=== PATIENT | male | born 1975 | race Caucasian/White ===

== ENCOUNTER 2016-09-13 20:48 | Inpatient (IN) | payer BC ==
[2016-09-13 20:59] VITALS: BMI 38.4
[2016-09-13] MEDS ORDERED: IBUPROFEN 400 MG TABLET (FP) PO ONE ×3 (21:12→21:29)
[2016-09-13] MEDS ORDERED: diphenhydrAMINE HCL 25 MG CAPSULE (FP) PO ONE ×2 (21:12→21:29)
--- NOTE | 2016-09-13 22:08 | PDOC ---
History of Present Illness - General Chief Complaint: Bone Injury Stated Complaint: INJURY LEFT FOOT Time Seen by Provider: 09/13/16 20:59 History Source: Patient Exam Limitations: No Limitations - History of Present Illness Initial Comments: 09/13/16 22:02 The patient is a 41M with no PMH who presents after sustaining a fall. The patient states that he was stung by a bee outside of his apartment. He stepped inside, felt lightheaded and lost consciousness. He is unsure if he hit his head. He believes that he tripped over his own feet. He was unable to put pressure on that foot. He could not find a ride to the hospital and called EMS. Allergies: none Surg: none Soc: does not smoke, drink, use any drugs Past History - Past Medical History Allergies/Adverse Reactions: Allergies Allergy/AdvReac Type Severity Reaction Status Date / Time No Known Allergies Allergy Verified 09/13/16 20:57 Home Medications: Ambulatory Orders NK [No Known Home Medication] 09/13/16 - Psycho/Social/Smoking Cessation Hx Suicidal Ideation: No Smoking History: Never smoked *Physical Exam - Vital Signs Last Vital Signs Temp Pulse Resp BP Pulse Ox 97.9 F 103 H 22 125/71 98 09/13/16 20:57 09/13/16 20:57 09/13/16 20:57 09/13/16 20:57 09/13/16 20:57 Procedures - Splinting Splint Location: Left: Ankle Pre-Proc Neuro Vasc Exam: normal Hand-Made Type: orthoglass Splint Type: Yes: Short Leg Post-Proc Neuro Vasc Exam: normal Stevo Bandage: 4", 6" Sling: No Post splint xray: Yes (Distal tip is in place, proximal broken fibula out of place) Good repositioning: No ED Treatment Course - LABORATORY CBC & Chemistry Diagram: 09/14/16 01:45 09/14/16 01:45 - RADIOLOGY Radiology Studies Ordered: Category Date Time Status ANKLE & FOOT-LEFT* [RAD] Stat Radiology 09/13/16 21:12 Taken - Medications Given in the ED: ED Medications Discontinued Medications Generic Name Dose Route Start Last Admin Trade Name Freq PRN Reason Stop Dose Admin Diphenhydramine HCl 25 mg 09/13/16 21:12 09/13/16 21:34 Benadryl - PO 09/13/16 21:13 25 mg ONCE ONE Administration Ibuprofen 400 mg 09/13/16 21:12 09/13/16 21:34 Motrin - PO 09/13/16 21:13 400 mg ONCE ONE Administration Ibuprofen 400 mg 09/13/16 21:28 09/13/16 21:34 Motrin - PO 09/13/16 21:29 400 mg ONCE ONE Administration Medical Decision Making - Medical Decision Making 09/14/16 02:00 The patient is a 41M with no PMH who presented after sustaining a fall and breaking his L ankle. We reduced it and splinted in the ED. Post reduction xr does not show a fixed open reduction. I will admit him to [facility] service and consult Dr. Irene. 09/14/16 03:14 Attending believes there is a tibial plateau fracture. I have ordered a CT to r/ o. He has been admitted to Dr. Lopez's service. *DC/Admit/Observation/Transfer Diagnosis at time of Disposition: Fracture - Discharge Dispostion Condition at time of disposition: Stable Admit: Yes - Attestations Physician Attestion: 09/14/16 02:04 I, Dr. Pedro Manuel, attest that this document has been prepared under my direction and personally reviewed by me in its entirety. I further attest, that it accurately reflects all work, treatment, procedures and medical decision -making performed by me.
[2016-09-13] MEDS ORDERED: morphine CARPU-JECT 4 MG/1 ML DISP.SYRIN IVPUSH ONE ×2 (22:40→23:42)
[2016-09-13] MEDS ORDERED: morphine CARPU-JECT 4 MG/1 ML DISP.SYRIN ONE ×2 (22:42→23:41)
[2016-09-13] MEDS ORDERED: ONDANSETRON 4 MG/2 ML VIAL ONE (23:41)
[2016-09-13] MEDS ORDERED: ONDANSETRON 4 MG/2 ML VIAL IVPUSH ONE (23:42)
--- NOTE | 2016-09-13 23:47 | PDOC ---
Attending Attestation - Resident Resident Name: Pedro Manuel - HPI HPI: 09/13/16 23:34 41yo M denies PMH p/w L ankle injury after falling at 4pm today. He reports he was stung by a bee 30 mins prior and when he walked into his building lobby, he tripped and fell, injuring his ankle. +head strike. He denies any LOC, and remembers the entire event. He currently complains of L ankle pain and reports he can not bear weight on the ankle. Not on any anticoagulation. - Physicial Exam PE: 09/13/16 23:39 GENERAL: Awake, alert, and fully oriented, in no acute distress HEAD: No signs of trauma EYES: PERRLA, EOMI, sclera anicteric, conjunctiva clear ENT: Auricles normal inspection, hearing grossly normal, nares patent, oropharynx clear without exudates. Moist mucosa NECK: Normal ROM, supple, no lymphadenopathy, JVD, or masses LUNGS: Breath sounds equal, clear to auscultation bilaterally. No wheezes, and no crackles HEART: Regular rate and rhythm, normal S1 and S2, no murmurs, rubs or gallops ABDOMEN: Soft, nontender, normoactive bowel sounds. No guarding, no rebound. No masses EXTREMITIES: Normal range of motion, no edema. No clubbing or cyanosis. No cords, erythema, or tenderness. L medial malleolus edema with 8x7cm hematoma, + ttp to medial malleolus and distal fibula. 2+ DP pulse b/l. No open wounds. No ttp to proximal fibula. NEUROLOGICAL: Cranial nerves II through XII grossly intact. 5/5 motor strength in upper and lower extremities, normal sensation in all 4 extremities Normal speech, gait deferred 2/2 ankle injury SKIN: Warm, Dry, normal turgor, no rashes or lesions noted. - Medical Decision Making 09/17/16 08:21 41yo M p/w unstable closed ankle fracture. Neurovascularly intact with 2+ SP and TP pulses. Attempted reduction and placed stirrup followed by posterior splint, on re-imaging, fracture still very displaced. Pt admitted to medicine for likely surgical management with ortho.
[2016-09-14] MEDS ORDERED: morphine CARPU-JECT 4 MG/1 ML DISP.SYRIN ONE (00:56)
[2016-09-14] MEDS ORDERED: morphine CARPU-JECT 4 MG/1 ML DISP.SYRIN IVPUSH ONE (01:02)
[2016-09-14 01:51] LABS: BASOPHIL 0.2 % (0-2.0); EOSINOPHIL 0.1 % (0-4.5); MCH 30.1 pg (25.7-33.7); MEAN CELL VOLUME 91.3 fl (80-96); MEAN PLT VOLUME 9.4 fl (7.5-11.1); NEUTROPHILS 83.1 % (42.8-82.8); PLATELET COUNT 270 K/MM3 (134-434); RDW 13.1 % (11.9-15.9); WHITE BLOOD COUNT 17.3 K/mm3 (4.0-10.0)
[2016-09-14 02:05] LABS: INR 1.1 (0.82-1.09); PROTHROMBIN TIME (PATIENT) 12.1 SEC (9.98-11.88)
[2016-09-14 02:07] LABS: ACTIVATED PTT 32.5 SECONDS (26.9-34.4)
[2016-09-14 02:15] LABS: ANION GAP 12 (8-16); BILIRUBIN,TOTAL 0.9 mg/dL (0.2-1.0); CALCIUM 8.7 mg/dL (8.5-10.1); CO2 26 mmol/L (21-32); CREATININE 0.7 mg/dL (0.7-1.3); GLUCOSE,RANDOM 75 mg/dL (74-106); SGPT/ALT 30 U/L (12-78); TOT PROT 7.4 g/dl (6.4-8.2)
[2016-09-14 02:16] LABS: ALK PHOS 75 U/L (45-117)
[2016-09-14 02:18] LABS: SGOT/AST 25 U/L (15-37)
[2016-09-14] MEDS ORDERED: oxyCODONE HCL 5 MG TABLET PO PRN (06:25)
[2016-09-14] MEDS ORDERED: ACETAMINOPHEN 325 MG TABLET (FP) PO PRN (06:25)
[2016-09-14] MEDS ORDERED: LIDOCAINE HCL 1%, 10 MG/ML (20ML VIAL) ONE (11:10)
[2016-09-14] MEDS ORDERED: LIDOCAINE HCL 1%, 10 MG/ML (50 mL VIAL) SQ ONE (11:15)
[2016-09-14] MEDS ORDERED: HYDROmorphone HCL CARPU-JECT 1 MG/1 ML DISP.SYRIN IVPB ONE (11:15)
[2016-09-14 11:28] LABS: BASOPHIL 0.2 % (0-2.0); EOSINOPHIL 0.4 % (0-4.5); MCH 29.6 pg (25.7-33.7); MCHC 32.4 g/dl (32.0-35.9); MEAN CELL VOLUME 91.3 fl (80-96); MEAN PLT VOLUME 8.3 fl (7.5-11.1); NEUTROPHILS 72.6 % (42.8-82.8); PLATELET COUNT 223 K/MM3 (134-434)
[2016-09-14 11:55] LABS: ALBUMIN 3.8 g/dl (3.4-5.0); ANION GAP 4 (8-16); CALCIUM 8.8 mg/dL (8.5-10.1); CO2 30 mmol/L (21-32); CREATININE 0.8 mg/dL (0.7-1.3); GLUCOSE,RANDOM 86 mg/dL (74-106); SGOT/AST 16 U/L (15-37); SGPT/ALT 27 U/L (12-78); TOT PROT 7.1 g/dl (6.4-8.2)
[2016-09-14 11:56] LABS: ALK PHOS 70 U/L (45-117)
--- NOTE | 2016-09-14 12:16 | CON.ORTH ---
Consult - Alcohol/Substance Use Hx Alcohol Use: Yes (occassionally) - Smoking History Smoking history: Never smoked Home Medications - Allergies Allergies/Adverse Reactions: Allergies Allergy/AdvReac Type Severity Reaction Status Date / Time No Known Allergies Allergy Verified 09/13/16 20:57 - Home Medications Home Medications: Ambulatory Orders NK [No Known Home Medication] 09/13/16 Physical Exam for Ortho Vital Signs: Vital Signs Temperature 97.7 F 09/14/16 09:00 Pulse Rate 89 09/14/16 09:00 Respiratory Rate 18 09/14/16 09:00 Blood Pressure 116/74 09/14/16 09:00 O2 Sat by Pulse Oximetry (%) 95 09/14/16 09:00 Labs: CBC, BMP 09/14/16 10:50 09/14/16 10:50 INR, PTT INR 1.10 (0.82-1.09) 09/14/16 01:45 Problem List - Problems (1) Fracture of distal end of left fibula Code(s): S82.832A - OTH FRACTURE OF UPPER AND LOWER END OF LEFT FIBULA, INIT Qualifiers: Encounter type: initial encounter Fracture type: closed Fracture morphology: unspecified fracture morphology Qualified Code(s): S82.832A - Other fracture of upper and lower end of left fibula, initial encounter for closed fracture Assessment/Plan Full consult dictated. Closed reduction performed at bedside. Fracture blisters present, will need to resolve prior to operative fixation. Strict NWB. PT for crutches. Elevate limb. PT for crutch training. Started NSAID to relieve inflammation. Can be discharged when comfortable on crutches.
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
[2016-09-14] MEDS: DICLOFENAC SODIUM 75 MG TABLET.DR PO SCH ×2 (16:21→17:36)
[2016-09-14] MEDS ORDERED: PT OWN MED DRAWER 7, Y5N ONE (17:32)
[2016-09-14] MEDS: ACETAMINOPHEN 325 MG TABLET (FP) PO PRN (18:03)
[2016-09-14] MEDS: oxyCODONE HCL 5 MG TABLET PO PRN (18:05)
[2016-09-14 18:23] LABS: URINE APPEARANCE CLEAR; URINE BILIRUBIN NEGATIVE (NEGATIVE); URINE BLOOD NEGATIVE (NEGATIVE); URINE COLOR YELLOW; URINE GLUCOSE (UA) NEGATIVE (NEGATIVE); URINE KETONE NEGATIVE (NEGATIVE); URINE LEUK ESTERASE NEGATIVE (NEGATIVE); URINE NITRITE NEGATIVE (NEGATIVE); URINE PROTEIN NEGATIVE (NEGATIVE); URINE UROBILINOGEN NEGATIVE mg/dL (0.2-1.0)
--- NOTE | 2016-09-15 00:05 | CONS ---
DATE OF CONSULTATION: 09/14/2016 REASON FOR CONSULTATION: Left ankle fracture. HISTORY OF PRESENT ILLNESS: This is a 41-year-old gentleman who had suffered a fall when he after being stung by a bee. He was unable to ambulate and brought in by EMS to the emergency department. He was evaluated for ankle pain, does not have an ankle fracture. Initially reduction was attempted by the emergency room staff; however, the ankle remained unreduced. Orthopedic consultation was called. At the time of examination, the patient is complaining of moderate discomfort to the left lower extremity. He denies any numbness or tingling. He denies any pain elsewhere. He notes he was painful before but has been really painful now. No previous ankle injuries. PAST MEDICAL HISTORY: Denies. PAST SURGICAL HISTORY: Denies. MEDICATION: None. ALLERGIES: None. SOCIAL HISTORY: Denies alcohol, tobacco, or drug use. REVIEW OF SYSTEMS: Negative for fever, chills, nausea, vomiting, night sweats, chest pain, shortness of breath, diarrhea, flatulence, rashes. PHYSICAL EXAMINATION: General: This is a well-appearing male in no acute distress. He is alert and oriented x3. Seen lying in hospital bed. He is overweight. He has regular respirations and normal affect. Extremities: Examination of the left ankle demonstrates a splint in place. The splint is removed. There is a 3 x 4 cm fracture blister noted on the medial aspect of the ankle located 5 cm from the distal tip of the medial malleolus. There are no lateral lesions. There is moderate diffuse swelling. The compartments are soft. There is very limited range of motion actively secondary to pain. Sensation is intact to light touch. CR less than 2 seconds. Radiographs from the emergency room are reviewed. There is a displaced spiral distal fibular fracture, Nelson C, with clear widening of the medial clear space and no interval change after attempted reduction. ASSESSMENT: Left unstable ankle injury. PLAN: I reviewed today's findings with the patient. We discussed that this is considered an unstable type ankle fracture. We reviewed that generally, this is best treated with operative fixation. This ruled out for anatomic reduction of the ankle and helps to prevent post traumatic arthrosis. We assessed the alternative of closed treatment, however, even a small amount of mild reduction could lead to a significantly increased contact pressures on the joints and breakdown of the cartilage. We reviewed that I am recommending a closed reduction at this time in order to obtain a better reduction. While this is not guaranteed, a more anatomic reduction may help the swelling to resolve in better time. I reviewed the risks of closed reduction which will be done with local anesthetic which may include infection or failure to reduce the ankle. I addressed all the patient's questions. We reviewed that surgery would be performed at a later date, typically 2-3 weeks after the injury to allow for resolution of the fracture blister as well as some of the swelling, to minimize the risk of perioperative infection and wound breakdown. Patient voiced understanding and agreement with the plan. A closed reduction was performed as documented below. PROCEDURE: Left ankle was prepped with chlorhexidine under sterile technique, an 18-gauge needle was inserted into the medial clear space, and 10 mL of 1% lidocaine was injected. A band-aid was placed. Patient was also given IV Dilaudid to help relieve any discomfort. The foot was allowed to sit for 10 minutes to allow for the medication to start working. The foot was then . A Xeroform dressing was placed about the blistered area. Manual reduction was effected and a clunk was felt as the ankle reduced; however, it was felt to be quite unstable and small motions were felt to create crackling sensations from the ankle joint. The ankle was now well padded with a layer of Webril padding. An AO type splint was now applied, maintaining a varus mold to help maintain the ankle in a more reduced position. Post reduction radiographs are ordered. JOVANA MEYERS M.D. [id number]
[2016-09-15] MEDS: oxyCODONE HCL 5 MG TABLET PO PRN ×5 (00:45→23:02)
[2016-09-15] MEDS: ACETAMINOPHEN 325 MG TABLET (FP) PO PRN ×5 (00:46→23:02)
[2016-09-15] MEDS ORDERED: PT OWN MED DRAWER 7, Y5N ONE ×2 (07:39→16:36)
[2016-09-15] MEDS: DICLOFENAC SODIUM 75 MG TABLET.DR PO SCH ×2 (07:45→17:55)
--- NOTE | 2016-09-15 09:02 | PN ---
Progress Note, Physician - Current Medication List Current Medications: Active Medications Acetaminophen (Tylenol -) 650 mg PO Q4H PRN PRN Reason: pain scale of 1-5 Last Admin: 09/15/16 07:45 Dose: 650 mg Acetaminophen (Tylenol -) 325 mg PO Q4H PRN PRN Reason: for pain scale of 6-10 Stop: 09/17/16 09:24 Last Admin: 09/15/16 00:46 Dose: 325 mg Diclofenac Sodium (Voltaren -) 75 mg PO BIDWM SAFIA Last Admin: 09/15/16 07:45 Dose: 75 mg Oxycodone HCl (Roxicodone -) 5 mg PO Q4H PRN PRN Reason: for pain scale of 6-10 Last Admin: 09/15/16 07:44 Dose: 5 mg - Objective Vital Signs: Vital Signs Temperature 97.9 F 09/15/16 05:58 Pulse Rate 80 09/15/16 05:58 Respiratory Rate 20 09/15/16 05:58 Blood Pressure 154/74 09/15/16 05:58 O2 Sat by Pulse Oximetry (%) 97 09/14/16 20:59 Labs: CBC, BMP 09/14/16 10:50 09/14/16 10:50 INR, PTT INR 1.10 (0.82-1.09) 09/14/16 01:45 Problem List - Problems (1) Fracture of distal end of left fibula Assessment/Plan: Fracture, distal end of L fibula -S/P closed reduction -L lower leg casted, NWB -Patient teaching on how to use crutches -NSAID for pain and inflammation -PT eval for the use of crutches Code(s): S82.832A - OTH FRACTURE OF UPPER AND LOWER END OF LEFT FIBULA, INIT Qualifiers: Encounter type: initial encounter Fracture type: closed Fracture morphology: unspecified fracture morphology Qualified Code(s): S82.832A - Other fracture of upper and lower end of left fibula, initial encounter for closed fracture (2) Syncope and collapse Assessment/Plan: ekg cardio Code(s): R55 - SYNCOPE AND COLLAPSE
--- NOTE | 2016-09-15 13:33 | EKG ---
Test Reason : Blood Pressure : / mmHG Vent. Rate : 082 BPM Atrial Rate : 082 BPM P-R Int : 138 ms QRS Dur : 090 ms QT Int : 354 ms P-R-T Axes : 040 062 034 degrees QTc Int : 413 ms NORMAL SINUS RHYTHM NORMAL ECG WHEN COMPARED WITH ECG OF 13-SEP-2016 22:47, NO SIGNIFICANT CHANGE WAS FOUND Confirmed by RENY VILLA MD ([id number]) on 09/15/2016 1:33:06 PM Referred By: BATSHEVA VILLASENOR Confirmed By:RENY VILLA MD
--- NOTE | 2016-09-15 13:42 | EKG ---
Test Reason : Blood Pressure : / mmHG Vent. Rate : 090 BPM Atrial Rate : 090 BPM P-R Int : 124 ms QRS Dur : 086 ms QT Int : 366 ms P-R-T Axes : 041 046 045 degrees QTc Int : 447 ms NORMAL SINUS RHYTHM NORMAL ECG NO PREVIOUS ECGS AVAILABLE Confirmed by RENY VILLA MD ([id number]) on 09/15/2016 1:42:17 PM Referred By: Confirmed By:RENY VILLA MD
--- NOTE | 2016-09-15 14:24 | CON.CARD ---
Consult Consult Specialty:: Cardiology Reason for Consultation:: Syncope - History of Present Illness Chief Complaint: Syncope after a bee sting History of Present Illness: This is a 41 year old male with no PMH who got stung by a bee in his buccal mucosa. He walked back to his apartment then felt lightheaded and believes he lost consciousness. He states he "fell" and sustained a left ankle injury which was splinted in the ED. He also sustained bruising over his left eye. He denies a significant medical history and there is no significant family history. 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, CVA, Dementia, Migraine, Multiple Sclerosis, Peripheral Neuropathy, Parkinson's, Seizure, Syncope, TIA, Vertigo, Other Cardio/Vascular: No: AFIB, Aneurysm, Aortic Insufficiency, Aortic Stenosis, CAD , CHF, Deep Vein Thrombosis, HTN, Hyperlipdemia, [place], Mitral Insufficiency, Mitral Stenosis, Murmur, Pulmonary Hypertension, Other Pulmonary: No: Asthma, Bronchitis, Cancer, COPD, O2 Dependent, Pneumonia, Previously Intubated, Pulmonary Embolus, Pulmonary Fibrosis, Sleep Apnea, Other Gastrointestinal: No: Ascites, Cancer, Constipation, Crohn's Disease, Diverticulitis, Diverticulosis, Esophageal Varices, Gastritis, GERD, GI Bleed, Hemorrhoids, Hiatal Hernia, Inflamatory Bowel Disease, Irritable Bowel Disease, Pancreatitis, Peptic Ulcer Disease, Ulcerative Colitis, Other Hepatobiliary: No: Cirrhosis, Cholelithiasis, Cholecystitis, Choledocholithiasis , Hepatitis A, Hepatitis B, Hepatitis C, Other Renal/: No: Renal Failure, Renal Inusuff, BPH, Cancer, Hematuria, Hemodialysis , Neurogenic Bladder, Renal Calculi, UTI, Other Infectious Disease: No: AIDS, C-Diff, Herpes Zoster, HIV, MRSA, STD's, Tuberculosis, VREF, Other Psych: No: Addictions, Anxiety, Bipolar, Depression, Panic, Psychosis, Schizophrenia, Other Musculoskeletal: Yes: Other (Pain, left ankle) Rheumatology: No: Fibromyalgia, Gout, Lupus, Rheumatoid Arthritis, Sarcoidosis, Vasculitis, Other ENT: No: Allergic Rhinitis, Sinusitis, Other Endocrine: No: Stokes's Disease, [place]'s Disease, Diabetes Insipidus, Diabetes Mellitus, Hyperparathyroidism, Hyperthyroidism, Hypothyroidism, Osteopenia, SIADH, Other Dermatology: No: Basal Cell, Cellulitis, Eczema, Melanoma, Psoriasis, Squamous Cell, Other - Alcohol/Substance Use Hx Alcohol Use: Yes (occassionally) History of Substance Use: reports: None - Smoking History Smoking history: Never smoked - Social History ADL: Independent 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 [employer] History of Recent Travel: No Home Medications - Allergies Allergies/Adverse Reactions: Allergies Allergy/AdvReac Type Severity Reaction Status Date / Time No Known Allergies Allergy Verified 09/13/16 20:57 - Home Medications Home Medications: Ambulatory Orders NK [No Known Home Medication] 09/13/16 Family Disease History - Family Disease History Family Disease History: Heart Disease: Father (Atherosclerosis), Other: Mother ( Obesity) Review of Systems Unable to obtain ROS, reason: As per HPI Vital Signs: Vital Signs Temperature 98.6 F 09/15/16 09:00 Pulse Rate 89 09/15/16 09:00 Respiratory Rate 16 09/15/16 09:00 Blood Pressure 120/60 09/15/16 09:00 O2 Sat by Pulse Oximetry (%) 96 09/15/16 09:00 Constitutional: Yes: Well Nourished Neck: Yes: WNL Respiratory: Yes: CTA Bilaterally Gastrointestinal: Yes: Soft Cardiovascular: Yes: Regular Rate and Rhythm Heart Sounds: Yes: S1, S2 (NO MRHG) Extremities: Yes: Other (Left leg cast intact Right leg no edema) Neurological: Yes: WNL (Non focal) Psychiatric: Yes: WNL - Other Data Labs, Other Data: CBC, BMP 09/14/16 10:50 09/14/16 10:50 INR, PTT INR 1.10 (0.82-1.09) 09/14/16 01:45 Assessment/Plan Syncope Most likely situational secondary to the bee sting inducing a vagal reaction However, would like to rule out structural heart disease (although unlikely given the normal appearing EKG) Please obtain an echocardiogram
[2016-09-16 07:41] LABS: BASOPHIL 0.1 % (0-2.0); EOSINOPHIL 1.3 % (0-4.5); MCH 30.2 pg (25.7-33.7); MCHC 32.9 g/dl (32.0-35.9); MEAN CELL VOLUME 91.6 fl (80-96); MEAN PLT VOLUME 8.7 fl (7.5-11.1); NEUTROPHILS 77.8 % (42.8-82.8); PLATELET COUNT 207 K/MM3 (134-434); RDW 13.4 % (11.9-15.9); WHITE BLOOD COUNT 11.1 K/mm3 (4.0-10.0)
[2016-09-16] MEDS ORDERED: PT OWN MED DRAWER 7, Y5N ONE ×2 (08:27→17:01)
[2016-09-16 08:30] LABS: ALBUMIN 3.5 g/dl (3.4-5.0); ALK PHOS 65 U/L (45-117); ANION GAP 7 (8-16); CALCIUM 8.6 mg/dL (8.5-10.1); CO2 28 mmol/L (21-32); CREATININE 0.7 mg/dL (0.7-1.3); GLUCOSE,RANDOM 77 mg/dL (74-106); SGOT/AST 17 U/L (15-37); SGPT/ALT 24 U/L (12-78); TOT PROT 7.2 g/dl (6.4-8.2)
[2016-09-16] MEDS: DICLOFENAC SODIUM 75 MG TABLET.DR PO SCH ×2 (08:30→17:07)
--- NOTE | 2016-09-16 12:04 | PN ---
Progress Note, Physician Chief Complaint: fall, left ankle fracture History of Present Illness: 41 year old male with no significant PMHx came in to the ED after sustaining a L ankle injury after falling at 4pm today. He reports he was stung by a bee in the right inner lip 30 mins prior and when he walked into his building lobby, he started to see yellow and black squares and fainted for a minute but remembers the entire event. Patient sustained a bruise and pain in the left ankle pain. NAD, sitting in a wheel chair, no pain at this time. - Current Medication List Current Medications: Active Medications Acetaminophen (Tylenol -) 650 mg PO Q4H PRN PRN Reason: pain scale of 1-5 Last Admin: 09/15/16 17:56 Dose: 650 mg Acetaminophen (Tylenol -) 325 mg PO Q4H PRN PRN Reason: for pain scale of 6-10 Stop: 09/17/16 09:24 Last Admin: 09/15/16 23:02 Dose: 325 mg Diclofenac Sodium (Voltaren -) 75 mg PO BIDWM SAFIA Last Admin: 09/16/16 08:30 Dose: 75 mg Oxycodone HCl (Roxicodone -) 5 mg PO Q4H PRN PRN Reason: for pain scale of 6-10 Last Admin: 09/15/16 23:02 Dose: 5 mg - Objective Vital Signs: Vital Signs Temperature 98.6 F 09/16/16 10:00 Pulse Rate 97 H 09/16/16 10:00 Respiratory Rate 17 09/16/16 10:00 Blood Pressure 128/70 09/16/16 10:00 O2 Sat by Pulse Oximetry (%) 98 09/16/16 10:02 Constitutional: Yes: Well Nourished, No Distress, Calm Cardiovascular: Yes: Regular Rate and Rhythm Respiratory: Yes: Regular Extremities: Yes: Other (LLE cast) Edema: No Peripheral Pulses WNL: Yes Neurological: Yes: Alert, Oriented Psychiatric: Yes: Alert, Oriented Labs: CBC, BMP 09/16/16 05:35 09/16/16 05:35 INR, PTT INR 1.10 (0.82-1.09) 09/14/16 01:45 Problem List - Problems (1) Fracture of distal end of left fibula Code(s): S82.832A - OTH FRACTURE OF UPPER AND LOWER END OF LEFT FIBULA, INIT Qualifiers: Encounter type: initial encounter Fracture type: closed Fracture morphology: unspecified fracture morphology Qualified Code(s): S82.832A - Other fracture of upper and lower end of left fibula, initial encounter for closed fracture (2) Syncope and collapse Code(s): R55 - SYNCOPE AND COLLAPSE Assessment/Plan Fracture, distal end of L fibula -S/P closed reduction -L lower leg casted, NWB -Patient was unable to use crutches, used walker, which has to be cleared by orthopedic -NSAID for pain and inflammation -was seen by cardiology who recommended echo -echo ordered -d/c if echo okay and walker approved by orthopedic
--- NOTE | 2016-09-16 15:59 | PN ---
Progress Note, Physician Chief Complaint: Presently resting comfortably and offers no complaints History of Present Illness: This is a 41 year old male with no PMH who got stung by a bee in his buccal mucosa. He walked back to his apartment then felt lightheaded and believes he lost consciousness. He states he "fell" and sustained a left ankle injury which was splinted in the ED. He also sustained bruising over his left eye. He denies a significant medical history and there is no significant family history. 09/16/16 No cardiac complaints. Echocardiogram performed, results pending. - Current Medication List Current Medications: Active Medications Acetaminophen (Tylenol -) 650 mg PO Q4H PRN PRN Reason: pain scale of 1-5 Last Admin: 09/15/16 17:56 Dose: 650 mg Acetaminophen (Tylenol -) 325 mg PO Q4H PRN PRN Reason: for pain scale of 6-10 Stop: 09/17/16 09:24 Last Admin: 09/15/16 23:02 Dose: 325 mg Diclofenac Sodium (Voltaren -) 75 mg PO BIDWM SAFIA Last Admin: 09/16/16 08:30 Dose: 75 mg Oxycodone HCl (Roxicodone -) 5 mg PO Q4H PRN PRN Reason: for pain scale of 6-10 Last Admin: 09/15/16 23:02 Dose: 5 mg - Objective Vital Signs: Vital Signs Temperature 98.0 F 09/16/16 14:47 Pulse Rate 95 H 09/16/16 14:47 Respiratory Rate 16 09/16/16 14:47 Blood Pressure 157/79 09/16/16 14:47 O2 Sat by Pulse Oximetry (%) 98 09/16/16 10:02 Constitutional: Yes: Well Nourished HENT: Yes: WNL Neck: Yes: WNL Cardiovascular: Yes: Regular Rate and Rhythm, S1, S2 (No MRHG) Respiratory: Yes: CTA Bilaterally Gastrointestinal: Yes: Soft Musculoskeletal: Yes: WNL Edema: No Peripheral Pulses WNL: Yes Neurological: Yes: Alert, Oriented (Non focal) Psychiatric: Yes: WNL Labs: CBC, BMP 09/16/16 05:35 09/16/16 05:35 INR, PTT INR 1.10 (0.82-1.09) 09/14/16 01:45 Assessment/Plan Syncope Most likely situational secondary to the bee sting inducing a vagal reaction However, would like to rule out structural heart disease (although unlikely given the normal appearing EKG) 09/16/16 No cardiac complaints. Echocardiogram performed, results pending. BP presently elevated to 157/79 mmHg, however, it was 119/69 mmHg on admission. No need for antihypertensive medication at this time.
[2016-09-16] MEDS: oxyCODONE HCL 5 MG TABLET PO PRN ×2 (17:07→22:54)
[2016-09-16] MEDS: ACETAMINOPHEN 325 MG TABLET (FP) PO PRN ×2 (17:07→22:53)
--- NOTE | 2016-09-17 08:11 | PN ---
Progress Note (short form) - Note Progress Note: Pt comf AF VSS LLE splint in place sens int to LT wiggling toes cr<2 post reduction films show no improvement in alignment A/p: L unstable ankle fracture -continue splint at this time -to see me Thursday in office for wound check -consider ex-fix if blister worsening or more blisters -plan ORIF 1-2 weeks -elevate -strict NWB -PT for ambulation Problem List - Problems (1) Fracture of distal end of left fibula Code(s): S82.832A - OTH FRACTURE OF UPPER AND LOWER END OF LEFT FIBULA, INIT Qualifiers: Encounter type: initial encounter Fracture type: closed Fracture morphology: unspecified fracture morphology Qualified Code(s): S82.832A - Other fracture of upper and lower end of left fibula, initial encounter for closed fracture
[2016-09-17] MEDS ORDERED: PT OWN MED DRAWER 7, Y5N ONE (09:12)
--- NOTE | 2016-09-17 09:12 | PN ---
Progress Note, Physician - Current Medication List Current Medications: Active Medications Acetaminophen (Tylenol -) 650 mg PO Q4H PRN PRN Reason: pain scale of 1-5 Last Admin: 09/15/16 17:56 Dose: 650 mg Acetaminophen (Tylenol -) 325 mg PO Q4H PRN PRN Reason: for pain scale of 6-10 Stop: 09/17/16 09:24 Last Admin: 09/16/16 22:53 Dose: 325 mg Diclofenac Sodium (Voltaren -) 75 mg PO BIDWM SAFIA Last Admin: 09/16/16 17:07 Dose: 75 mg Oxycodone HCl (Roxicodone -) 5 mg PO Q4H PRN PRN Reason: for pain scale of 6-10 Last Admin: 09/16/16 22:54 Dose: 5 mg - Objective Vital Signs: Vital Signs Temperature 98.2 F 09/17/16 05:57 Pulse Rate 83 09/17/16 05:57 Respiratory Rate 18 09/17/16 05:57 Blood Pressure 118/60 09/17/16 05:57 O2 Sat by Pulse Oximetry (%) 97 09/16/16 21:00 Labs: CBC, BMP 09/16/16 05:35 09/16/16 05:35 INR, PTT INR 1.10 (0.82-1.09) 09/14/16 01:45 Problem List - Problems (1) Fracture of distal end of left fibula Assessment/Plan: Fracture, distal end of L fibula -S/P closed reduction -L lower leg casted, NWB -Patient was unable to use crutches, used walker, which was cleared by orthopedic -NSAID for pain and inflammation -was seen by cardiology who recommended echo -echo ordered -d/c if echo okay Code(s): S82.832A - OTH FRACTURE OF UPPER AND LOWER END OF LEFT FIBULA, INIT Qualifiers: Encounter type: initial encounter Fracture type: closed Fracture morphology: unspecified fracture morphology Qualified Code(s): S82.832A - Other fracture of upper and lower end of left fibula, initial encounter for closed fracture (2) Syncope and collapse Assessment/Plan: ekg cardio echo Code(s): R55 - SYNCOPE AND COLLAPSE
--- NOTE | 2016-09-17 09:22 | DS ---
Physical Examination Vital Signs: Vital Signs Temperature 98.2 F 09/17/16 05:57 Pulse Rate 83 09/17/16 05:57 Respiratory Rate 18 09/17/16 05:57 Blood Pressure 118/60 09/17/16 05:57 O2 Sat by Pulse Oximetry (%) 97 09/16/16 21:00 Labs: CBC, BMP 09/16/16 05:35 09/16/16 05:35 Discharge Summary Reason For Visit: ANKLE FRACTURE Current Active Problems Fracture (Acute) Fracture of distal end of left fibula (Acute) Syncope and collapse (Acute) Hospital Course: - Problems (1) Fracture of distal end of left fibula Assessment/Plan: Fracture, distal end of L fibula -S/P closed reduction -L lower leg casted, NWB -Patient was unable to use crutches, used walker, which was cleared by orthopedic -NSAID for pain and inflammation -was seen by cardiology who recommended echo -echo ordered -d/c if echo okay Code(s): S82.832A - OTH FRACTURE OF UPPER AND LOWER END OF LEFT FIBULA, INIT Qualifiers: Encounter type: initial encounter Fracture type: closed Fracture morphology: unspecified fracture morphology Qualified Code(s): S82.832A - Other fracture of upper and lower end of left fibula, initial encounter for closed fracture (2) Syncope and collapse Assessment/Plan: ekg cardio echo Code(s): R55 - SYNCOPE AND COLLAPSE Condition: Stable - Instructions Referrals: Savita Lopez MD [Primary Care Provider] - 2 Weeks Misbah Irene MD [Staff Physician] - 09/19/16 - Home Medications Comprehensive Discharge Medication List: Ambulatory Orders Acetaminophen [Tylenol .Regular Strength -] 650 mg PO Q4H PRN #0 tablet Diclofenac Sodium [Voltaren -] 75 mg PO BIDWM #30 tab 09/17/16 Oxycodone HCl [Roxicodone -] 5 mg PO Q6H PRN #20 tablet MDD 4 09/17/16 Ranitidine [Zantac -] 150 mg PO DAILY #30 tablet 09/17/16
[2016-09-17] MEDS: DICLOFENAC SODIUM 75 MG TABLET.DR PO SCH ×2 (09:31→17:27)
[2016-09-17] MEDS: oxyCODONE HCL 5 MG TABLET PO PRN ×2 (09:40→17:28)
[2016-09-17] MEDS: ACETAMINOPHEN 325 MG TABLET (FP) PO PRN ×2 (09:42→17:29)
[2016-09-17 14:50] VITALS: BP 132/88; PULSE 90; TEMP 98.5
--- NOTE | 2016-09-17 15:23 | PN ---
Progress Note, Physician Chief Complaint: Presently resting comfortably and offers no complaints History of Present Illness: This is a 41 year old male with no PMH who got stung by a bee in his buccal mucosa. He walked back to his apartment then felt lightheaded and believes he lost consciousness. He states he "fell" and sustained a left ankle injury which was splinted in the ED. He also sustained bruising over his left eye. He denies a significant medical history and there is no significant family history. 09/16/16 No cardiac complaints. Echocardiogram performed, showed Normal LV size and function, normal RV size and function. MVP without MR. EF 66%. - Current Medication List Current Medications: Active Medications Acetaminophen (Tylenol -) 650 mg PO Q4H PRN PRN Reason: pain scale of 1-5 Last Admin: 09/17/16 09:42 Dose: 650 mg Diclofenac Sodium (Voltaren -) 75 mg PO BIDWM SAFIA Last Admin: 09/17/16 09:31 Dose: 75 mg Oxycodone HCl (Roxicodone -) 5 mg PO Q4H PRN PRN Reason: for pain scale of 6-10 Last Admin: 09/17/16 09:40 Dose: 5 mg - Objective Vital Signs: Vital Signs Temperature 98.5 F 09/17/16 14:49 Pulse Rate 90 09/17/16 14:49 Respiratory Rate 18 09/17/16 14:49 Blood Pressure 132/88 09/17/16 14:49 O2 Sat by Pulse Oximetry (%) 97 09/16/16 21:00 Constitutional: Yes: Well Nourished Neck: Yes: WNL Cardiovascular: Yes: Regular Rate and Rhythm, S1, S2 (No MRHG) Respiratory: Yes: CTA Bilaterally Gastrointestinal: Yes: Soft Edema: No (Left leg cast) Neurological: Yes: WNL Psychiatric: Yes: WNL Labs: CBC, BMP 09/16/16 05:35 09/16/16 05:35 INR, PTT INR 1.10 (0.82-1.09) 09/14/16 01:45 Assessment/Plan Syncope Most likely situational secondary to the bee sting inducing a vagal reaction However, would like to rule out structural heart disease (although unlikely given the normal appearing EKG) 09/16/16 Echocardiogram results noted. NL LV fxn. MVP without MR. No further cardiac evaluation required at this time.
== END 2016-09-17 18:25 | disposition home or self-care (01) | DRG 563 ==
LOC: JER 20:48 → JERBED 09-14 02:04 → J7W 09-14 04:08
PROVIDERS: ADMIT Family Medicine; ATTEND Family Medicine
PROC: 0QSKXZZ Reposition Left Fibula, External Approach (ICD-10-PCS; principal; 2016-09-14)
DX: S82.832A Other fracture of upper and lower end of left fibula, initial encounter for closed fracture (principal); W18.39XA Other fall on same level, initial encounter; Y93.89 Activity, other specified; Y92.038 Other place in apartment as the place of occurrence of the external cause; Y99.8 Other external cause status; R55 Syncope and collapse
CPT/HCPCS: 36415; 73560-TC-LT; 73590-TC-LT; 73610-TC-LT; 73630-TC-LT; 73700-TC-RT; 80053; 81003; 85025; 85610; 85730; 86850; 86900; 86901; 87077; 87086; 93005; 93010; 93306-TC; 97116-GP; 97161-GP; 99285-25

== ENCOUNTER 2016-09-19 14:15 | Day surgery (SDC) | payer BC ==
[2016-09-19 15:53] VITALS: BMI 38.0
[2016-09-19] MEDS ORDERED: MIDAZOLAM HCL 2 MG/2 ML SINGLE DOSE VIAL ONE (16:09)
[2016-09-19] MEDS ORDERED: DEXAMETHASONE SOD PHOSPHATE/PF 10 MG/ML SDV ONE (16:11)
[2016-09-19] MEDS ORDERED: ROPIVACAINE HCL 0.5% 30ML VIAL ONE (16:11)
[2016-09-19] MEDS ORDERED: PROPOFOL 20 ML ONE ×4 (18:30→19:06)
[2016-09-19] MEDS ORDERED: SUCCINYLCHOLINE CHLORIDE 200 MG/10 ML VIAL ONE (18:31)
[2016-09-19] MEDS ORDERED: ACETAMINOPHEN 1000 MG/100 ML VIAL (NON FORMULARY) IVPB ONE (18:41)
[2016-09-19] MEDS ORDERED: oxyCODONE HCL 5 MG TABLET PO PRN ×3 (18:41→20:39)
[2016-09-19] MEDS ORDERED: DESFLURANE GAS 240 ML BOTTLE IH ONE (19:20)
--- NOTE | 2016-09-19 20:36 | OP ---
Operative Note - Note: Operative Date: 09/19/16 Pre-Operative Diagnosis: left distal fibular fracture, ankle subluxation, fracture blister Operation: external fixation of left ankle Implants: delvis 3 exfix Post-Operative Diagnosis: Same as Pre-op Surgeon: Misbah Irene Anesthesiologist/TALENT ACQUISITION PROJECT MANAGER: Martinez Vaughn Anesthesia: General
[2016-09-19] MEDS ORDERED: ACETAMINOPHEN 325 MG TABLET (FP) PO PRN ×2 (20:38→20:39)
[2016-09-20] MEDS: ACETAMINOPHEN 325 MG TABLET (FP) PO SCH ×4 (01:17→15:57)
[2016-09-20] MEDS: CEFAZOLIN 1 GM/D5W 50 ML IVPB SCH ×3 (01:20→17:50)
[2016-09-20] MEDS: ENOXAPARIN NA (PORCINE) 40 MG/0.4 ML DISP.SYRIN SQ SCH (09:45)
[2016-09-20] MEDS: oxyCODONE HCL 5 MG TABLET PO PRN ×2 (15:58→21:10)
[2016-09-21] MEDS: ACETAMINOPHEN 325 MG TABLET (FP) PO SCH ×3 (00:15→12:47)
[2016-09-21] MEDS: oxyCODONE HCL 5 MG TABLET PO PRN (06:20)
[2016-09-21 06:24] VITALS: TEMP 98
[2016-09-21] MEDS: ENOXAPARIN NA (PORCINE) 40 MG/0.4 ML DISP.SYRIN SQ SCH (10:09)
--- NOTE | 2016-09-21 11:08 | DS ---
Physical Examination Vital Signs: Vital Signs Temperature 98 F 09/21/16 06:22 Pulse Rate 78 09/21/16 06:22 Respiratory Rate 20 09/21/16 06:22 Blood Pressure 121/61 09/21/16 06:22 O2 Sat by Pulse Oximetry (%) 98 09/20/16 22:05 Constitutional: Yes: Well Nourished, No Distress, Calm Extremities: Yes: Other (LLE exfix in place. dressings cdi. NVID) Discharge Summary Reason For Visit: LEFT ANKLE FRACTURE Condition: Good - Instructions Diet, Activity, Other Instructions: no weight on left leg cover with plastic bag for showering take a baby aspirin twice daily follow up on Thursday Referrals: Misbah Irene MD [Staff Physician] - Disposition: HOME - Home Medications Comprehensive Discharge Medication List: Ambulatory Orders Diclofenac Sodium [Voltaren -] 75 mg PO BIDWM #30 tab 09/17/16 Oxycodone HCl [Roxicodone -] 5 mg PO Q6H PRN #20 tablet MDD 4 09/17/16 Ranitidine [Zantac -] 150 mg PO DAILY #30 tablet 09/17/16
--- NOTE | 2016-09-21 11:09 | PN ---
Progress Note (short form) - Note Progress Note: Pt comf. AF VSS LLE dressings cdi sens int to LT CR<2 Moving toes DF PF a/p s/p L ankle ex-fix -nwb -elevate for swelling -aspirin for DVT proph -pain control -follow up Thursday
[2016-09-21 14:19] VITALS: BP 114/62; PULSE 88
--- NOTE | 2016-09-22 22:49 | OP ---
DATE OF OPERATION: 09/19/2016 PREOPERATIVE DIAGNOSIS: Left ankle fracture. POSTOPERATIVE DIAGNOSIS: Left ankle fracture. PROCEDURE: Left ankle internal fixation. SURGEON: Misbah Meyers MD HOME DESIGNER: None. ANESTHESIA: General. POSTOPERATIVE CONDITION: Stable. COMPLICATIONS: None. IMPLANTS: Glen Lyn Rommel III external fixator. INDICATIONS: This is a pleasant 41-year-old gentleman who had suffered an ankle fracture last week. He was found to have a fracture blister, which was significantly draining in the office. Given that his wound care be limited in a splint, he was indicated for external fixation. Treatment options including nonoperative care with continued splinting and possible wound breakdown or infection were discussed. We discussed operative risks in detail including bleeding, infection, neurovascular injury, need for further surgery (which in this case would be guaranteed as the external fixator needs to come off and fibular ORIF needs to be performed), postoperative pain and stiffness. We discussed medical risks such as heart attack, stroke, DVT, PE, and . I addressed all of the patient's questions. He voiced understanding and elected to proceed. DESCRIPTION OF PROCEDURE: The patient was brought to the operating room where general anesthesia was administered. He had been given a block in the preoperative holding area. The left lower extremity was then prepped and draped in the usual sterile fashion. A preoperative dose of antibiotics was given, and the usual timeout procedure was performed. At this point, 2 points were identified over the anterior tibia. Incisions were then made over the tibial crest. Blunt spreading was used to carry down tothe tibial cortex. Two Schanz pins were then inserted under fluoroscopic guidance into the tibia. Schanz placement was confirmed fluoroscopically, and this was satisfactory. The Schanz pin was now inserted into the calcaneus. Here, a lateral radiograph was used to identify the inner calcaneal tuberosity. Incision was made over the medial aspect of the calcaneal tuberosity. This was carried down through skin and subcutaneous tissue. Spreading was used down to the level of the calcaneal cortex. The calcaneal pin was now inserted under power across the calcaneus and retrieved out laterally. With all the pins now in place, a delta frame was assembled onto the Schanz pins. The ankle was reduced. The frame was tightened into place. Fluoroscopy was used to confirm fracture reduction, which was now satisfactory. This was performed in 3 planes. The wounds were now sterilely dressed. It should be noted that the medial blister was approximately 4 x 5 cm in diameter located medially just proximal to the medial malleolus. The entire construct was dressed now. The patient was extubated and transferred to the recovery room in stable condition. MISBAH MEYERS M.D. [id number] MTDD
== END 2016-09-21 17:30 | disposition home or self-care (01) ==
LOC: FASU 14:15 → FM/S 20:00 → FASU 09-21 17:30
PROVIDERS: ATTEND Orthopaedic Surgery Sports Medicine
PROC: 2W3RXYZ Immobilization of Left Lower Leg using Other Device (ICD-10-PCS; principal; 2016-09-19 19:05)
DX: S82.62XA Displaced fracture of lateral malleolus of left fibula, initial encounter for closed fracture (principal); X58.XXXA Exposure to other specified factors, initial encounter; Y93.9 Activity, unspecified; Y92.9 Unspecified place or not applicable
CPT/HCPCS: 73610-TC-LT; 76000-TC; 94760; 97116-GP

== ENCOUNTER 2016-10-07 10:34 | Day surgery (SDC) | payer BC ==
[2016-10-06 15:16] VITALS: BMI 36.9
[2016-10-07] MEDS ORDERED: ROPIVACAINE HCL 0.5% 30ML VIAL ONE (11:45)
[2016-10-07] MEDS ORDERED: MIDAZOLAM HCL 2 MG/2 ML SINGLE DOSE VIAL ONE ×2 (11:46)
[2016-10-07] MEDS ORDERED: PROPOFOL 20 ML ONE ×3 (12:31)
[2016-10-07] MEDS ORDERED: ceFAZolin SODIUM 1 GM VIAL IVPB ONE ×2 (12:49)
[2016-10-07] MEDS ORDERED: ceFAZolin SODIUM 1 GM VIAL ONE (14:22)
[2016-10-07] MEDS ORDERED: DEXAMETHASONE SOD PHOSPHATE 4 MG/1 ML VIAL ONE (14:22)
[2016-10-07] MEDS ORDERED: ONDANSETRON 4 MG/2 ML VIAL ONE ×2 (14:22)
[2016-10-07] MEDS ORDERED: KETOROLAC TROMETHAMINE 30 MG/1 ML VIAL ONE (14:22)
[2016-10-07] MEDS ORDERED: ONDANSETRON 4 MG/2 ML VIAL IVPUSH PRN (14:52)
[2016-10-07] MEDS ORDERED: oxyCODONE HCL 5 MG TABLET PO PRN (14:52)
[2016-10-07] MEDS ORDERED: LACTATED RINGERS SOLUTION 1,000 ML IV SCH (15:00)
[2016-10-07 16:20] VITALS: TEMP 97.8
[2016-10-07 16:30] VITALS: PULSE 80
--- NOTE | 2016-10-07 16:40 | OP ---
DATE OF OPERATION: 10/07/2016 PREOPERATIVE DIAGNOSIS: Left distal fibular fracture-dislocation status post external fixation. POSTOPERATIVE DIAGNOSIS: Left distal fibular fracture-dislocation status post external fixation. PROCEDURE: Open reduction and internal fixation of left distal fibula and removal of external fixator. SURGEON: Misbah Irene MD MACHINE BURRER: CHAY Marsh, whose skillful assistance was necessary for the safe and timely performance of this procedure. Mr. Cosby was able to provide limb positioning, assist with retraction, assist with fracture reduction, as well as insertion of orthopedic fixation hardware. Also present was Dr. Zamora, podiatry resident. TOURNIQUET TIME: An hour and a half. POSTOPERATIVE CONDITION: Stable. COMPLICATIONS: None. IMPLANTS: Jeffery distal fibular plate with associated locking and nonlocking screws, as well as 2 Ar[employer]rex TightRopes. INDICATIONS: This is a 41-year-old gentleman who suffered an ankle fracture with near dislocation. Initially, he was treated with closed reduction and external fixation as he had formed a large fracture blister and was malreduced. The plan was to perform a staged ORIF at a later date once the swelling and skin condition had improved. Having followed up in the office with significant improvement, he was indicated for his definitive procedure. Prior to surgery, the risks, benefits, and alternatives to surgery were discussed in detail. We discussed the option of continuing external fixation with malunion of the fibula, potential for ligamentous instability. We discussed operative care with plate and screws to fixate the bone once brought back into proper alignment. I reviewed surgical risks including bleeding, infection, neurovascular injury, need for further surgery, postoperative pain and stiffness, nonunion, and malunion. We discussed the possibility of later removal of hardware. I reviewed medical risks such as heart attack, stroke, DVT , PE, and . I discussed the use of perioperative DVT and perioperative antibiotic prophylaxis. I addressed all the patient's questions. He voiced understanding and elected to proceed. DESCRIPTION OF PROCEDURE: The patient was brought to the operating room where general anesthesia was administered. The left lower extremity was then prepped and draped in the usual sterile fashion. Preoperative antibiotics given and the usual timeout procedure was performed. It should be noted that prior to draping, the external fixator had been disassembled, and the pins removed. The calcaneal pin was removed after a die cutter was used to trim off the protruding portion. At this point, an incision was marked out over the fibula. The limb was then elevated, and tourniquet was inflated to 250 mmHg. The incision was then carried down through the skin to the subcutaneous tissue. Blunt spreading was used to expose the fibular fracture site. The fracture site was now debrided of any loose debris. Any soft callus was removed. The fracture was now reduced utilizing fracture reduction forceps. The fracture was then fixated using two 3.5-mm lag screws inserted into the [id number] direction. The fracture reduction clamps were then removed. A plate was chosen and contoured to fit the lateral aspect of the fibula. The plate was now affixed to the bone utilizing a combination of 3.5 locking and nonlocking screws. Initially, nonlocking screws were placed in order to draw the plate down to the bone. The ankle was now passed through an external rotation stress test, and there was widening of the medial clear space. For this reason, fixation of the syndesmosis was chosen. The 3.7-mm drill bit was now used to create 2 tunnels across the fibula and across the tibia. The TightRope devices were now passed through the tunnels, seating the button firmly on the medial tibial cortex. Each TightRope was then tightened. The ankle was now stressed again, and no significant widening was seen. The wound was copiously irrigated at this point. The deep tissue was approximated using 0 Vicryl. The subcutaneous tissue was approximated using 3-0 Vicryl. The skin was closed using running 3-0 nylon. Sterile dressings were placed. The tourniquet was let down. A well-padded short-leg cast was placed. The patient was now extubated. He was transferred to recovery room in stable condition. Sussy [id number] MTDD
[2016-10-07 18:11] VITALS: BP 114/70
--- NOTE | 2016-10-09 08:44 | PATH ---
Surgical Pathology Report Patient Name: CLAUDIA BARRETT Med. Rec. #: [id number] /Age/Gender: 1975 (Age: 41) / M Account: [id number] Location: [facility] Taken: 10/07/2016 Received: 10/08/2016 Reported: 10/09/2016 Physicians: Misbah Irene M.D. 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 Electronically Signed Carlito Sales M.D. Gross Description Received fresh labeled "removed external fixation," are 4 metallic portions of hardware ranging from 5.0-35 cm in greatest dimension, consistent with portions of a leg brace. No soft tissue is present. No sections are submitted, gross only. DL/10/08/2016 saudi/10/08/2016
== END 2016-10-07 18:11 | disposition home or self-care (01) ==
LOC: JASU-SURG 10:34
PROVIDERS: ATTEND Orthopaedic Surgery Sports Medicine
PROC: 0YPBXYZ Removal of Other Device from Left Lower Extremity, External Approach (ICD-10-PCS; 2016-10-07)
PROC: 0QSK04Z Reposition Left Fibula with Internal Fixation Device, Open Approach (ICD-10-PCS; principal; 2016-10-07 12:00)
DX: S82.62XA Displaced fracture of lateral malleolus of left fibula, initial encounter for closed fracture (principal); X58.XXXA Exposure to other specified factors, initial encounter; Y93.9 Activity, unspecified; Y92.9 Unspecified place or not applicable; Y99.9 Unspecified external cause status
CPT/HCPCS: 76000-TC; 88300-TC; 94760

== ENCOUNTER 2016-11-13 12:09 | Day surgery (SDC) | payer BC ==
[2016-11-12 13:37] VITALS: BMI 38.4
[2016-11-13] MEDS ORDERED: DEXAMETHASONE SOD PHOSPHATE/PF 10 MG/ML SDV ONE (12:58)
[2016-11-13] MEDS ORDERED: BUPIVACAINE HCL/PF (5 MG/ML) 30 ML VIAL IJ ONE (12:58)
[2016-11-13] MEDS ORDERED: MIDAZOLAM HCL 2 MG/2 ML SINGLE DOSE VIAL ONE ×2 (12:58→13:30)
[2016-11-13] MEDS ORDERED: ceFAZolin SODIUM 1 GM VIAL ONE (15:06)
[2016-11-13] MEDS ORDERED: oxyCODONE HCL 5 MG TABLET PO PRN ×2 (17:29)
[2016-11-13] MEDS ORDERED: PROMETHAZINE HCL 25 MG/1 ML VIAL IVPUSH PRN (17:29)
[2016-11-13] MEDS ORDERED: ONDANSETRON 4 MG/2 ML VIAL IVPUSH PRN (17:29)
[2016-11-13] MEDS ORDERED: LACTATED RINGERS SOLUTION 1,000 ML IV SCH (17:30)
--- NOTE | 2016-11-13 17:48 | OP ---
DATE OF OPERATION: 11/13/2016 PREOPERATIVE DIAGNOSIS: Left ankle open reduction and internal fixation failure of fixation. POSTOPERATIVE DIAGNOSIS: Left ankle open reduction and internal fixation failure of fixation. PROCEDURE: Left ankle revision of open reduction and internal fixation. SURGEON: Misbah Irene MD EXPORT FREIGHT CLERK: CHAY Abbott, whose skillful assistance was necessary for the safe and timely performance of this procedure. Ms. Dumont was able to assist in limb positioning, retraction, fracture reduction, as well as the insertion of orthopedic fixation hardware. ANESTHESIA TYPE: General. POSTOPERATIVE CONDITION: Stable. COMPLICATIONS: None. TOURNIQUET TIME: Two hours. INDICATIONS: This is a pleasant gentleman who had suffered a left ankle unstable fracture. He was initially treated with external fixation, followed by a staged open reduction and internal fixation. Despite initial postoperative films appearing copasetic as well as his first followup, at 1 month postoperatively, it appeared that his reduction was lost. The exact source of this was unclear. That being said, it was clear that his mortise was not maintained, with widening of the medial clear space. Treatment options including nonoperative care versus operative care were reviewed. Operative risks were reviewed in detail including bleeding, infection, neurovascular injury, need for further surgery, postoperative pain and stiffness, nonunion, malunion, hardware failure, cutout. We discussed medical risks such as heart attack, stroke, DVT, PE, and . I addressed all the patient's questions. He voiced understanding and elected to proceed. DESCRIPTION OF PROCEDURE: The patient was brought to the operating room after administration of a regional block in the preoperative holding area. The left lower extremity was then prepped and draped in the usual sterile fashion. A preoperative dose of antibiotics was given, and the usual timeout procedure was performed. At this point, the limb was exsanguinated. Tourniquet was inflated to 250 mmHg. The previously used incision was incised using a 15 blade through skin to subcutaneous tissue. Blunt spreading was carried down through the scar tissue left behind. This then exposed the plate. The plate was now removed. There were no obvious loose screws. There were no obvious cracks or deformities in the plate. There was a gap seen in the fracture site, but this had filled in somewhat with callus. Utilizing a freer as well as a curette, the fracture site was debrided of any material inside. The fracture was somewhat more comminuted at this point. Utilizing fracture reduction forceps, the fracture was now brought into near-anatomic alignment. The fracture was now held in place with two 2.0 K-wires. The plate was now chosen to transfix the entire fracture site, resting more distal and more proximal than the previous plate in order to provide good fixation. This was now affixed to bone using a combination of locking and nonlocking screws. The K-wires were then removed. There was still some mild widening of the medial clear space, and therefore, syndesmotic fixation was again decided to be placed. It should be noted that while the plate was removed, a medial incision was made over the buttons, and these had been removed at the same time, utilizing blunt spreading to expose the buttons and then pulling out them along with their associated sutures. Two new 3.7-mm drill holes were now made parallel to the mortise. Two TightRopes were inserted and then cinched down, maintaining the ankle in neutral dorsiflexion during the process. The entire construct was now examined both visually and fluoroscopically. Both fracture reduction and hardware placement were satisfactory. The wounds were copiously irrigated at this time. Deep tissue was closed with 0 Vicryl. The subcutaneous tissue was closed with 2-0 Vicryl. The skin was closed interrupted mattress 3-0 nylon, and 4-0 nylon was used for the mattresses. Sterile dressings were placed. The tourniquet was let down after 2 hours. The patient was placed into a short-leg, well-padded cast. He was transferred to recovery room following extubation in stable condition. Sussy [id number]
--- NOTE | 2016-11-13 17:52 | SURG ---
Surgery Human Resources Psychologist Note Human Resources Psychologist: Darlyn Dumont PA-C Date of Service: 11/13/16 Diagnosis: left ankle fracture Procedure: Revision open reduction internal fixation of left ankle fracture I was present for the entirety of the operative procedure. For further detail, please refer to operative report. Visit type - Case Type Case Type: Scheduled Admission - Emergency Emergency Visit: No - New patient This patient is new to me today: Yes Date on this admission: 11/13/16
[2016-11-13] MEDS ORDERED: MORPHINE 100 MG in SODIUM CHLORIDE 98 ML IVPB SCH (18:00)
[2016-11-13] MEDS ORDERED: morphine CARPU-JECT 2 MG/1 ML DISP.SYRIN IVPB PRN (18:14)
[2016-11-13 21:15] LABS: HIV 1 & 2 AB NEGATIVE; HIV 1 AGp24 NEGATIVE
[2016-11-13] MEDS: ASPIRIN 325 MG ENTERIC COATED TABLET (FP) PO SCH (21:22)
[2016-11-14] MEDS ORDERED: PT OWN MED DRAWER 7, Y5N ONE (09:23)
[2016-11-14] MEDS: ASPIRIN 325 MG ENTERIC COATED TABLET (FP) PO SCH (09:26)
[2016-11-14] MEDS ORDERED: ASCORBIC ACID 500 MG TABLET (FP) PO SCH (10:00)
[2016-11-14] MEDS ORDERED: CHOLECALCIFEROL (VITAMIN D3) 400 UNIT TABLET (FP) PO SCH (10:00)
[2016-11-14] MEDS ORDERED: RANITIDINE HCL 150 MG TABLET (FP) PO SCH (10:00)
[2016-11-14] MEDS ORDERED: VITAMIN B COMP W-C 1 EA TABLET PO SCH (10:00)
[2016-11-14] MEDS ORDERED: ACETAMINOPHEN 325 MG TABLET (FP) ONE (11:22)
--- NOTE | 2016-11-14 13:46 | PN ---
Progress Note (short form) - Note Progress Note: S: pt. sitting in a chair, very comfortable. no complaints O: VAS 4/10 A/P: POD#1 s/p left ankle ORIF 1. continue pain meds as ordered 2. no apparent anesthetic complications
[2016-11-14 14:03] VITALS: BP 129/65; PULSE 87; TEMP 98.7
--- NOTE | 2016-11-18 10:34 | PATH ---
Surgical Pathology Report Patient Name: CLAUDIA BARRETT Med. Rec. #: [id number] /Age/Gender: 1975 (Age: 41) / M Account: [id number] Location: [facility] AMBULATORY Taken: 11/13/2016 Received: 11/13/2016 Reported: 11/18/2016 Physicians: Misbah Irene M.D. Specimen(s) Received EXPLANT HARDWARE LEFT ANKLE Clinical History Left ankle fracture Final Diagnosis EXPLANT HARDWARE, LEFT ANKLE: HARDWARE, DESCRIBED (GROSS EXAMINATION ONLY). Electronically Signed Darlyn Patel M.D. Gross Description Received fresh labeled "left ankle explant hardware," are 13 chappell metallic portions of hardware consisting of 8 screws (ranging from 1.1-1.7 cm in length), 2 chappell metallic washers (averaging 0.6 x 0.1 cm), 1 rosen metallic plate (10.5 x 1.0 x 0.2 cm), and 2 chappell metallic plates with attached string (averaging 1.2 x 0.3 x 0.1 cm). No soft tissue is present. No sections are submitted, gross only. /11/14/2016 saudi11/14/2016
== END 2016-11-14 18:22 | disposition home or self-care (01) ==
LOC: FASU 12:09 → FM/S 19:19 → FASU 11-14 18:22
PROVIDERS: ATTEND Orthopaedic Surgery Sports Medicine
PROC: 0SSG0ZZ Reposition Left Ankle Joint, Open Approach (ICD-10-PCS; 2016-11-13)
PROC: 0QSK04Z Reposition Left Fibula with Internal Fixation Device, Open Approach (ICD-10-PCS; principal; 2016-11-13 14:56)
DX: T84.197A Other mechanical complication of internal fixation device of bone of left lower leg, initial encounter (principal); S93.432A Sprain of tibiofibular ligament of left ankle, initial encounter; Y83.8 Other surgical procedures as the cause of abnormal reaction of the patient, or of later complication, without mention of misadventure at the time of the procedure; Y92.9 Unspecified place or not applicable
CPT/HCPCS: 36415; 73610-TC-LT; 76001-TC; 84460; 86803; 87340; 87389; 88300-TC; 94760; 97116-GP; 97161-GP

== ENCOUNTER 2020-07-26 10:06 | Inpatient (IN) | payer BC, OTHER ==
[2020-07-20 13:06] VITALS: BMI 35.9
[2020-07-26] MEDS ORDERED: PROPOFOL 20 ML ONE ×2 (12:16→12:21)
[2020-07-26] MEDS ORDERED: fentaNYL CITRATE 250 MCG/5 ML VIAL ONE (12:16)
[2020-07-26] MEDS ORDERED: EPHEDRINE SULFATE/0.9% NACL/PF 50 MG/10 ML SYRINGE NR ONE (13:10)
[2020-07-26] MEDS ORDERED: ACETAMINOPHEN INJECTION 100 ML IVPB ONE (13:37)
[2020-07-26] MEDS ORDERED: IBUPROFEN 800 MG/8 ML IJ IVPB ONE (13:37)
[2020-07-26] MEDS ORDERED: VANCOMYCIN 1,000 MG VIAL (RESTRICTED TO ID ONLY) ONE (14:02)
[2020-07-26] MEDS ORDERED: oxyCODONE HCL 5 MG TABLET PO PRN (15:28)
[2020-07-26] MEDS ORDERED: ONDANSETRON 4 MG/2 ML VIAL IVPUSH PRN ×2 (15:28→16:15)
[2020-07-26] MEDS ORDERED: LACTATED RINGERS SOLUTION 1,000 ML IV SCH (15:30)
[2020-07-26] MEDS ORDERED: ONDANSETRON 4 MG/2 ML VIAL ONE (15:53)
[2020-07-26] MEDS ORDERED: ACETAMINOPHEN 325 MG TABLET (FP) PO PRN (16:15)
[2020-07-26] MEDS: LACTATED RINGERS SOLUTION 1,000 ML IV SCH (18:24)
[2020-07-26] MEDS: CEFAZOLIN 1 GM/D5W 1 GM/50 ML BAG IVPB SCH (23:27)
[2020-07-27] MEDS: CEFAZOLIN 1 GM/D5W 1 GM/50 ML BAG IVPB SCH (06:08)
[2020-07-27] MEDS ORDERED: VANCOMYCIN/WATER BAGS 1,250 MG/250 ML BAG IVPB SCH (09:45)
[2020-07-27] MEDS ORDERED: PIPERACILLIN/TAZOBACTAM 3.375 GM VIAL IVPB ONE ×2 (09:55→17:43)
[2020-07-27] MEDS ORDERED: DEXTROSE 5%-WATER - 50 ML IVPB ONE ×2 (09:55→17:44)
[2020-07-27] MEDS: PIPERACILLIN/TAZOB 3.375 GM 3.375 GM in DEXTROSE 5%-WATER - 50 ML IVPB SCH ×2 (11:27→18:13)
[2020-07-27 12:31] LABS: BASO % 0.3 % (0-2.0); EOS % 0.5 % (0-4.5); HEMATOCRIT 39.3 % (35.4-49); HEMOGLOBIN 13.1 GM/dl (11.7-16.9); LYMPH % 16.8 % (8-40); MCH 30.9 pg (25.7-33.7); MCHC 33.3 g/dl (32.0-35.9); MEAN CELL VOLUME 92.8 fl (80-96); MEAN PLT VOLUME 9.2 fl (7.5-11.1); MONO % 5.5 % (3.8-10.2); NEUT % 76.9 % (42.8-82.8); PLATELET COUNT 209 10^3/uL (134-434); RBC 4.24 M/mm3 (4.00-5.60); WHITE BLOOD COUNT 11.8 K/mm3 (4.0-10.8)
[2020-07-27] MEDS: VANCOMYCIN HCL 1,250 MG in DEXTROSE 5%-WATER - 250 ML IVPB SCH ×2 (12:38→21:40)
[2020-07-27 12:49] LABS: ALBUMIN 3.6 g/dl (3.4-5.0); BILIRUBIN,TOTAL 0.5 mg/dl (0.2-1); CALCIUM 8.3 mg/dl (8.5-10); CREATININE 0.6 mg/dl (0.55-1.3); TOT PROT 6.5 g/dl (6.4-8.2)
[2020-07-27] MEDS: ENOXAPARIN NA (PORCINE) 40 MG/0.4 ML DISP.SYRIN SQ SCH (13:02)
[2020-07-27] MEDS: LACTATED RINGERS SOLUTION 1,000 ML IV SCH (16:09)
[2020-07-27] MEDS ORDERED: PT OWN MED DRAWER 7, Y5N ONE (20:24)
[2020-07-28] MEDS ORDERED: DEXTROSE 5%-WATER - 50 ML IVPB ONE ×4 (00:54→23:46)
[2020-07-28] MEDS ORDERED: PIPERACILLIN/TAZOBACTAM 3.375 GM VIAL IVPB ONE ×4 (00:54→23:46)
[2020-07-28] MEDS: PIPERACILLIN/TAZOB 3.375 GM 3.375 GM in DEXTROSE 5%-WATER - 50 ML IVPB SCH ×3 (01:33→18:40)
[2020-07-28] MEDS: ENOXAPARIN NA (PORCINE) 40 MG/0.4 ML DISP.SYRIN SQ SCH (09:37)
[2020-07-28] MEDS: VANCOMYCIN HCL 1,250 MG in DEXTROSE 5%-WATER - 250 ML IVPB SCH ×2 (09:40→21:28)
[2020-07-28] MEDS ORDERED: POLYETHYLENE GLYCOL 3350 119 GM BTL PO PRN (16:11)
[2020-07-28] MEDS ORDERED: MAGNESIUM HYDROX 2400MG/30ML ORAL SUSPENSION 30 ML CUP PO PRN (16:11)
[2020-07-28] MEDS: LACTATED RINGERS SOLUTION 1,000 ML IV SCH (18:44)
[2020-07-28] MEDS: DOCUSATE SODIUM 100 MG CAPSULE (FP) PO SCH (21:22)
[2020-07-29] MEDS: PIPERACILLIN/TAZOB 3.375 GM 3.375 GM in DEXTROSE 5%-WATER - 50 ML IVPB SCH ×3 (01:16→17:51)
[2020-07-29] MEDS: DOCUSATE SODIUM 100 MG CAPSULE (FP) PO SCH ×3 (06:03→21:54)
[2020-07-29 08:11] LABS: BASO % 0.3 % (0-2.0); EOS % 1.4 % (0-4.5); HEMATOCRIT 42.8 % (35.4-49); HEMOGLOBIN 14.3 GM/dl (11.7-16.9); LYMPH % 18.8 % (8-40); MCH 30.9 pg (25.7-33.7); MCHC 33.4 g/dl (32.0-35.9); MEAN CELL VOLUME 92.4 fl (80-96); MEAN PLT VOLUME 9.2 fl (7.5-11.1); MONO % 6.2 % (3.8-10.2); NEUT % 73.3 % (42.8-82.8); PLATELET COUNT 207 10^3/uL (134-434); RBC 4.63 M/mm3 (4.00-5.60); RDW 12.2 % (11.9-15.9); WHITE BLOOD COUNT 7.1 K/mm3 (4.0-10.8)
[2020-07-29 08:21] LABS: CALCIUM 8.9 mg/dl (8.5-10); CREATININE 0.5 mg/dl (0.55-1.3)
[2020-07-29] MEDS ORDERED: PIPERACILLIN/TAZOBACTAM 3.375 GM VIAL IVPB ONE ×2 (09:31→17:38)
[2020-07-29] MEDS ORDERED: DEXTROSE 5%-WATER - 50 ML IVPB ONE ×2 (09:32→17:38)
[2020-07-29] MEDS: ENOXAPARIN NA (PORCINE) 40 MG/0.4 ML DISP.SYRIN SQ SCH (09:51)
[2020-07-29] MEDS: VANCOMYCIN HCL 1,250 MG in DEXTROSE 5%-WATER - 250 ML IVPB SCH ×2 (09:52→21:42)
[2020-07-29 10:12] LABS: ERYTHROCYTE SEDIMENTATION RATE 16 mm/hr (0-10)
[2020-07-29] MEDS ORDERED: PT OWN MED DRAWER 7, Y5N ONE (21:08)
[2020-07-29] MEDS: LACTATED RINGERS SOLUTION 1,000 ML IV SCH (21:55)
[2020-07-30] MEDS ORDERED: DEXTROSE 5%-WATER - 50 ML IVPB ONE (00:49)
[2020-07-30] MEDS ORDERED: PIPERACILLIN/TAZOBACTAM 3.375 GM VIAL IVPB ONE (00:49)
[2020-07-30] MEDS: PIPERACILLIN/TAZOB 3.375 GM 3.375 GM in DEXTROSE 5%-WATER - 50 ML IVPB SCH (01:29)
[2020-07-30] MEDS: DOCUSATE SODIUM 100 MG CAPSULE (FP) PO SCH ×2 (06:02→14:05)
[2020-07-30 09:57] VITALS: TEMP 98.3
[2020-07-30] MEDS ORDERED: POLYETHYLENE GLYCOL (HEALTHYLAX) 3350 17 GM PACKET PO PRN (11:36)
[2020-07-30] MEDS: ENOXAPARIN NA (PORCINE) 40 MG/0.4 ML DISP.SYRIN SQ SCH (14:05)
[2020-07-30] MEDS: VANCOMYCIN HCL 1,250 MG in DEXTROSE 5%-WATER - 250 ML IVPB SCH (14:05)
[2020-07-30 14:09] VITALS: BP 134/79; PULSE 86
== END 2020-07-30 18:06 | disposition home or self-care (01) | DRG 494 ==
LOC: FASU 10:06 → FM/S 16:53 → FASU 07-28 13:37
PROVIDERS: ADMIT Orthopaedic Surgery Sports Medicine; ATTEND Orthopaedic Surgery Sports Medicine
PROC: 2W1TX6Z Compression of Left Foot using Pressure Dressing (ICD-10-PCS; 2020-07-26)
PROC: 0SPG04Z Removal of Internal Fixation Device from Left Ankle Joint, Open Approach (ICD-10-PCS; principal; 2020-07-26 12:34)
PROC: 0Y9L0ZX Drainage of Left Ankle Region, Open Approach, Diagnostic (ICD-10-PCS; 2020-07-26 12:34)
PROC: 02HV33Z Insertion of Infusion Device into Superior Vena Cava, Percutaneous Approach (ICD-10-PCS; 2020-07-30)
PROC: B518ZZA Fluoroscopy of Superior Vena Cava, Guidance (ICD-10-PCS; 2020-07-30)
DX: T84.69XA Infection and inflammatory reaction due to internal fixation device of other site, initial encounter (principal); Y83.8 Other surgical procedures as the cause of abnormal reaction of the patient, or of later complication, without mention of misadventure at the time of the procedure; E66.9 Obesity, unspecified; Z68.35 Body mass index [BMI] 35.0-35.9, adult
CPT/HCPCS: 36415; 36569; 73610-TC-LT-FY; 73630-TC-LT; 76000-TC-FY; 80048; 80053; 85025; 85651; 86140; 87040; 87070; 87186; 87205; 88300-TC; 88304-TC; 88305-TC; 88311-TC; 94760; 97116-GP; 97162-GP; C9803; G0480; J0131; U0003; U0005

== ENCOUNTER 2022-07-31 04:42 | Day surgery (SDC) | payer BC ==
[2022-07-30 08:30] VITALS: BMI 40.3
[2022-07-31 12:11] VITALS: TEMP 98
[2022-07-31 12:36] VITALS: BP 107/52; PULSE 62; RESP 17
== END 2022-07-31 13:15 | disposition home or self-care (01) ==
LOC: JASU-ENDO 04:42
PROVIDERS: ATTEND Internal Medicine Gastroenterology
PROC: 0DJD8ZZ Inspection of Lower Intestinal Tract, Via Natural or Artificial Opening Endoscopic (ICD-10-PCS; principal; 2022-07-31 11:30)
DX: Z12.11 Encounter for screening for malignant neoplasm of colon (principal)